=== PATIENT | male | born 1945 | race Caucasian/White ===

== ENCOUNTER 2016-11-11 19:55 | Emergency (ER) | payer MEDICARE, BC ==
[~2016-11-11 19:55] MED LIST: ASAB PO; C5 PO; CARDCD240 PO; COUMADIN4 MG PO; HEADACHE RELIEF; L20 PO; LOP25 PO; LORTAB 5 PO; MOVANTIK25 MG PO; NORCO1 TA1 PO; PACERONE200 MG PO; PERCOGESIC1 TAB OR; PRAVACHOL40 MG PO; PRAVACHOL80 MG PO; PRILO PO; PRIN5 PO; XANAX1 MG PO; ZOL100 PO
[2016-11-11 20:08] LABS: BASOPHILS 0.5 %; BASOPHILS ABSOLUTE 0.03 10/3/uL (0.0-0.16); EOSINOPHILS 1.6 %; HEMATOCRIT 38.4 % (40.0-51.0); HEMOGLOBIN 12.7 g/dL (13.6-17.8); IMMATURE GRANULOCYTES 0.3 %; IMMATURE GRANULOCYTES ABSOLUTE 0.02 10/3/uL (0.0-0.11); LYMPHOCYTES 16.9 %; LYMPHOCYTES ABSOLUTE 1.09 10/3/uL (0.67-4.30); MEAN CORPUS HGB CONC 33.1 g/dL (32.0-36.0); MEAN CORPUSCULAR HEMOGLOB 27.1 pg (26.0-34.0); MONOCYTES 10.1 %; MONOCYTES ABSOLUTE 0.65 10/3/uL (0.21-1.20); NEUTROPHILS 70.6 %; NEUTROPHILS ABSOLUTE 4.56 10/3/uL (2.02-8.40); PLATELET COUNT 177 10/3/uL (150-400); RED CELL COUNT 4.68 10/6/uL (4.7-6.1)
[2016-11-11 20:11] LABS: ER CBC TAT 0 Hrs 09 Mins; MANUAL DIFF NO %; MEAN CORPUSCULAR VOLUME 82.1 fL (80-100); RBC DISTRIBUTION WIDTH 17.6 % (12.0-16.0); WHITE BLOOD CELLS 6.5 10/3/uL (4.5-10.5)
[2016-11-11 20:16] LABS: INTERNATIONAL NORMAL RATI 1.3 UNITS (-); PARTIAL THROMBO TIME 31.3 SEC (22.5-37.2); PROTIME (NOT ORD) 15.7 SEC (12.0-14.5)
[2016-11-11 20:19] LABS: D-DIMER QUANTITATIVE 3.19 ug/mLFEU (< 0.50)
[2016-11-11 20:26] LABS: BUN (BLOOD UREA NITROGEN) 19 MG/DL (6-23); CALCIUM, SERUM 9.3 MG/DL (8.5-10.4); CHEST PAIN PROFILE TAT 0 Hrs 24 Mins; CHLORIDE, SERUM 109 MMOL/L (96-112); CO2 (CARBON DIOXIDE) 25 MMOL/L (24-34); CREATININE 0.84 MG/DL (0.70-1.30); GFR AFRICAN AMERICAN 101 ML/MIN (>=60); GFR NON AFRICAN AMERICAN 87 ML/MIN (>=60); GLUCOSE, SERUM 90 MG/DL (60-99); SODIUM, SERUM 138 MMOL/L (135-148); TROPONIN I <0.02 NG/ML (<0.05)
[2016-11-11] MEDS ORDERED: PCET PO (21:19)
[2016-11-11] MEDS ORDERED: XANAX1 MG PO (21:19)
[2016-11-11] MEDS ORDERED: PRAVACHOL80 MG PO (21:21)
[2016-11-11] MEDS ORDERED: LOP25 PO (21:21)
[2016-11-11] MEDS ORDERED: JANTOVEN3 MG PO (21:21)
[2016-11-11] MEDS ORDERED: NEUR100 PO (21:22)
[2016-11-11] MEDS ORDERED: DILT-XR240 MG PO (21:22)
[2016-11-11] MEDS ORDERED: CORDARONE PO (21:22)
[2016-11-11] MEDS ORDERED: ZESTRIL5 MG PO (21:22)
[2016-11-11] MEDS ORDERED: PRILO PO (21:22)
[2016-11-11] MEDS ORDERED: ZOL100 PO (21:22)
[2016-11-12 00:32] LABS: ASCORBIC ACID (UR NOT ORDER) NEG (NEG); BILIRUBIN, URINE NEGATIVE (NEG); ER URINALYSIS TAT 0 Hrs 00 Mins; KETONE, URINE NEGATIVE (NEG); LEUKOCYTE ESTERASE(NOT OR NEG (NEG); NITRITE (URINE) NEG (NEG); WBC (NOT ORDERED) (RFLEX) < 1 (0-5)
== END 2016-11-12 01:10 | disposition home or self-care (01) ==
LOC: ER 19:55
PROVIDERS: Nurse Practitioner Family
DX: R53.1 Weakness (principal); Z91.14 Patient's other noncompliance with medication regimen; I25.2 Old myocardial infarction; I10 Essential (primary) hypertension; F03.90 Unspecified dementia, unspecified severity, without behavioral disturbance, psychotic disturbance, mood disturbance, and anxiety; F41.9 Anxiety disorder, unspecified; F32.9 Major depressive disorder, single episode, unspecified; I42.9 Cardiomyopathy, unspecified; I71.4 Abdominal aortic aneurysm, without rupture; Z87.01 Personal history of pneumonia (recurrent); Z87.891 Personal history of nicotine dependence; Z95.810 Presence of automatic (implantable) cardiac defibrillator; Z79.01 Long term (current) use of anticoagulants; Z79.899 Other long term (current) drug therapy
CPT/HCPCS: 70450; 71010; 71275; 80048; 81001; 83735; 83880; 84484; 85025; 85379; 85610; 85730; 93005; 99285; Q9967